=== PATIENT | male | born 1945 | race American Indian/Alaskan Native ===

== ENCOUNTER 2016-10-19 07:48 | Day surgery (SDC) | payer MEDICARE, MEDICAID ==
[~2016-10-19 07:48] MED LIST: DIPRIVAN 10 MG/ML IV ONE
[2016-10-19] MEDS ORDERED: NACL 0.9% 1000 ML 1,000 ML IV SCH (09:00)
[2016-10-19] MEDS ORDERED: NEURONTIN PO NR (09:51)
--- NOTE | 2016-10-19 10:32 | Anesthesia Day of Surgery ---
Anesthesia Day of Surgery - Day of Surgery Patient Examined: Yes Patient H&P Reviewed: Yes Patient is NPO: Yes
--- NOTE | 2016-10-19 10:32 | Anesthesia Consultation ---
Anesthesia Consult and Med Hx Date of service: 10/19/16 - Airway Anesthetic Teeth Evaluation: Poor (several missing and broken teeth, dentures/ partials) ROM Head & Neck: Adequate Mental/Hyoid Distance: Inadequate Mallampati Class: Class III Intubation Access Assessment: Probably Good - Pulmonary Exam CTA: Yes - Cardiac Exam Cardiac Exam: RRR - Pre-Operative Health Status ASA Pre-Surgery Classification: ASA3 Proposed Anesthetic Plan: MAC - Pulmonary Hx Smoking: Yes - Cardiovascular System Hx Hypertension: No - Central Nervous System Hx Psychiatric Problems: Yes (schizophrenia, bipolar) - Gastrointestinal Hx Gastroesophageal Reflux Disease: Yes - Endocrine Hx Insulin Dependent Diabetes: Yes - Hematic Hx Anemia: No Hx Sickle Cell Disease: No - Other Systems Hx Alcohol Use: No Hx Substance Use: No Hx Cancer: No Hx Obesity: No
[2016-10-19] MEDS ORDERED: XYLOCAINE MPF 2% ONE (10:59)
[2016-10-19] MEDS ORDERED: NEO SYNEPHRINE/NS Syringe(OR USE) IV ONE (10:59)
--- NOTE | 2016-10-19 11:54 | Operative Report ---
Operative Report Operative Report: Date of procedure: 10/19/2016 Procedure: Colonoscopy Attending physician: Siddharth Sultana MD Blood Bank Credit Clerk: Siddharth Sultana MD Indication: 70-year-old male who presents for colorectal cancer screening. A Colonoscopy is done to evaluate patient so that treatment may be directed based on the findings.. Consent: Informed consent was obtained after advising the patient and family regarding nature of this procedure, its indications, potential benefits as well as possible complications including but not limited to bleeding perforation and adverse reaction to medication, infection as well as other cardiopulmonary complications. An informed written and verbal consent was then obtained after due opportunity was provided for questions and answers. Monitoring: Patient was monitored continuously with pulse oximetry and electrocardiographic recordings as well as blood pressure recordings. Vital signs remained stable throughout this procedure with no untoward events. Preoperative assessment: Patient was assessed immediately prior to this procedure for capacity to tolerate monitored anesthesia care and moderate sedation as well as general anesthesia. Patient's ASA classification is 4 because of severe sleep apnea, Mallampati class is 2, Hyomental distance is 3. Instrument: [employer] videocolonoscope Medications: Propofol given intravenously in divided doses. For details please refer to anesthesia records. Description of procedure: Patient was placed in the left lateral decubitus position after achieving sedation, a digital rectal examination was performed following which the colonoscope was introduced into the anal verge and advanced to the tip of the cecum at the ileocecal valve, with a fleeting view of the appendiceal orifice, . The colonoscope could not be advanced further and the cecum was only sparingly visualized due to patient's overall condition. Patient had sleep apnea and was having obstructive symptoms which made the procedure technically difficult and prolonged. The colonoscope was subsequently withdrawn with careful inspection of all mucosal surfaces. Patient tolerated this procedure fairly well and was subsequently taken to the recovery room. The following findings were noted. Findings: There was substantial retained stool in various sections the colon including the cecum. Most of the stool was easily irrigated however the cecum was not very well visualized due to the retained stool. There were diverticula of varying sizes seen in the ascending colon but much more so in the descending colon and the sigmoid colon. There were no other mucosal abnormalities seen. On the retroflex view at the anal verge, patient had internal hemorrhoids. Impression: Retained stool. Diverticular disease of colon Internal hemorrhoids. Plan: High-fiber diet. Consider a contrast barium enema to further visualize the cecum. Patient will be followed up as outpatient and additional recommendations made in follow-up.
--- NOTE | 2016-10-19 11:55 | Discharge Summary ---
Short Stay Discharge Plan Activity: advance as tolerated Weight Bearing Status: Weight Bear as Tolerated Diet: regular
[2016-10-19 12:15] VITALS: BP 151/98
--- NOTE | 2016-10-19 12:59 | Post Anesthesia Evaluation ---
- Post Anesthesia Evaluation Patient Participated: Yes Airway Patent: Yes Stable Respiratory Function: Yes Nausea/Vomiting: No Temp > 96.8F: Yes Pain Manageable: Yes Adequeate Hydration: Yes Anesthesia Complications: No Block Receding Appropriately: Not Applicable Patient on Ventilator: No
== END 2016-10-19 07:49 | disposition home or self-care (01) ==
LOC: GIO 07:48
PROVIDERS: ATTEND Internal Medicine Gastroenterology
DX: Z12.11 Encounter for screening for malignant neoplasm of colon (principal); K57.30 Diverticulosis of large intestine without perforation or abscess without bleeding; K64.8 Other hemorrhoids; F17.210 Nicotine dependence, cigarettes, uncomplicated; F31.9 Bipolar disorder, unspecified; K21.9 Gastro-esophageal reflux disease without esophagitis; E11.9 Type 2 diabetes mellitus without complications
CPT/HCPCS: G0121; J2370; J2704; J7030; 82962